=== PATIENT | female | born 1935 | race Caucasian/White ===

== ENCOUNTER 2016-10-17 17:53 | Inpatient (IN) ==
[2016-10-17] MEDS ORDERED: ZOFRAN ODT PO ONE (18:23)
[2016-10-17] MEDS ORDERED: ZOFRAN ODT ONE (18:25)
[2016-10-17 19:28] LABS: MANUAL DIFF NEEDED? NO
[2016-10-17 19:34] LABS: BASO% 0.6 % (0.0-0.8); EOS# 0.14 X1000 (0.0-0.7); EOS% 1.6 % (0.0-10.0); HEMOGLOBIN 10.5 g/dL (12.0-16.0); IMM GRAN# 0.03 X1000 (0.0-0.04); IMM GRAN% 0.3 % (0.0-0.5); LYMPH# 1.24 X1000 (1.2-3.4); LYMPH% 13.9 % (20.5-51.1); MCH 32.7 PG (27-31); MCHC 31.8 g/dL (33-37); MCV 102.8 FL (81-99); MONO% 13.5 % (1.7-9.3); NEUT% 70.1 % (42.2-75.2); PLT 291 X1000 (130-400); RBC 3.21 XMIL (4.2-5.4)
[2016-10-17 19:40] LABS: URINE MICRO REVIEW NEEDED? NO; URINE SOURCE CLEAN CATCH
[2016-10-17 19:42] LABS: BILIRUBIN URINE NEGATIVE (NEGATIVE); BLOOD URINE LARGE (NEGATIVE); COLOR YELLOW; GLUCOSE URINE NEGATIVE (NEGATIVE); LEUKOCYTES URINE MODERATE (NEGATIVE); NITRITE URINE NEGATIVE (NEGATIVE); PROTEIN URINE 70 mg/dL (NEGATIVE); SP GRAVITY URINE 1.017; TURBIDITY URINE HAZY (CLEAR); UROBILINOGEN URINE NORMAL (NORMAL)
[2016-10-17 19:44] LABS: UR EPITHELIAL CELLS <10 /HPF (<10); URINE BACTERIA NEGATIVE /HPF; URINE CULTURE NEEDED? YES; URINE RBC TNTC /HPF (<10); URINE WBC TNTC /HPF (<10)
[2016-10-17 19:51] LABS: ALBUMIN 3.9 g/dL (3.5-5.0); CALCIUM 9.2 mg/dL (8.8-10.2); POTASSIUM 4.3 mmol/L (3.5-5.1); TOTAL BILIRUBIN 0.17 mg/dL (0.20-1.00); TOTAL PROTEIN 6.9 g/dL (6.3-8.3)
[2016-10-17] MEDS ORDERED: DILAUDID IV ONE (20:03)
[2016-10-17] MEDS ORDERED: DILAUDID ONE (20:09)
[2016-10-18] MEDS ORDERED: ZOFRAN IV PRN (03:15)
[2016-10-18] MEDS ORDERED: NS 1,000 ML IV SCH (03:15)
[2016-10-18] MEDS: TYLENOL PO PRN ×3 (03:42→19:35)
[2016-10-18] MEDS: SYNTHROID PO SCH (06:49)
[2016-10-18 07:20] LABS: ALBUMIN 3.4 g/dL (3.5-5.0); CALCIUM 8.2 mg/dL (8.8-10.2); POTASSIUM 4.8 mmol/L (3.5-5.1); TOTAL BILIRUBIN 0.2 mg/dL (0.20-1.00); TOTAL PROTEIN 6.6 g/dL (6.3-8.3)
[2016-10-18] MEDS: LOPRESSOR PO SCH (09:16)
[2016-10-19] MEDS: TYLENOL PO PRN ×2 (00:34→06:25)
[2016-10-19 04:29] VITALS: BP 176/70
[2016-10-19] MEDS: SYNTHROID PO SCH (06:25)
[2016-10-19 06:40] LABS: MANUAL DIFF NEEDED? NO
[2016-10-19 06:56] LABS: BASO% 0.9 % (0.0-0.8); EOS# 0.12 X1000 (0.0-0.7); EOS% 1.8 % (0.0-10.0); HEMATOCRIT 33.5 % (37.0-47.0); HEMOGLOBIN 10.4 g/dL (12.0-16.0); IMM GRAN# 0.02 X1000 (0.0-0.04); IMM GRAN% 0.3 % (0.0-0.5); LYMPH# 1.26 X1000 (1.2-3.4); LYMPH% 19.2 % (20.5-51.1); MCH 32.1 PG (27-31); MCV 103.4 FL (81-99); MONO# 0.81 X1000 (0.11-0.59); MONO% 12.3 % (1.7-9.3); MPV 10.5 FL (7.4-10.4); NEUT% 65.5 % (42.2-75.2); PLT 293 X1000 (130-400); RBC 3.24 XMIL (4.2-5.4)
[2016-10-19 07:01] LABS: ALBUMIN 3.6 g/dL (3.5-5.0); CALCIUM 9.2 mg/dL (8.8-10.2); MAGNESIUM 1.8 mg/dL (1.5-2.7); POTASSIUM 4.1 mmol/L (3.5-5.1); TOTAL BILIRUBIN 0.29 mg/dL (0.20-1.00); TOTAL PROTEIN 6.5 g/dL (6.3-8.3)
[2016-10-19 07:34] LABS: FREE T4 0.91 ng/dL (0.93-1.70)
[2016-10-19] MEDS: LOPRESSOR PO SCH (09:31)
== END 2016-10-19 15:20 | disposition home or self-care (01) ==
LOC: 3N 17:53 → ED 17:53 → SUATTDRO 10-18 00:37
PROVIDERS: ATTEND Emergency Medicine